=== PATIENT | female | born 1960 | race Caucasian/White ===

== ENCOUNTER 2017-03-27 18:34 | Inpatient (IN) | payer OTHER ==
[~2017-03-27] VITALS: Ht 162.6 cm; Wt 81.3 kg
[2017-03-27] MEDS ORDERED: ONDANSETRON 2MG/ML, 2ML IVPush ONE ×2 (19:00→22:00)
[2017-03-27] MEDS ORDERED: FAMOTIDINE 20 MG/2 ML IVP ONE (19:00)
[2017-03-27] MEDS ORDERED: SODIUM CHLORIDE FLUSH 10ML SYR IVF ONE (19:00)
[2017-03-27] MEDS ORDERED: SODIUM CHLORIDE 0.9% 1,000ML IVBOLUS ONE (19:00)
[2017-03-27 19:17] LABS: HEMATOCRIT 42.1 % (34.6-47.8); HEMOGLOBIN 14.1 g/dL (11.7-16.4); WHITE BLOOD COUNT 8.3 x10^3/uL (3.4-10)
[2017-03-27 19:26] LABS: ASPARTATE AMINO TRANSFERASE 20 U/L (15-37); BLOOD UREA NITROGEN 9 mg/dL (7-18)
[2017-03-27] MEDS ORDERED: FAMOTIDINE 20 MG/2 ML ONE (20:11)
[2017-03-27] MEDS ORDERED: ONDANSETRON 2MG/ML, 2ML ONE ×2 (20:11→21:46)
[2017-03-27] MEDS ORDERED: FEXO60TA24 PO (20:29)
[2017-03-27] MEDS ORDERED: HYDROmorphone 1 MG/ML, 1ML ONE ×2 (20:39→21:14)
[2017-03-27] MEDS: HYDROmorphone 1 MG/ML, 1ML IVPush PRN ×2 (20:47→21:22)
[2017-03-27] MEDS ORDERED: OMNIPAQUE 350 MG/ML, 100ML BOTTLE ONE (21:40)
[2017-03-28] MEDS ORDERED: ONDANSETRON ODT 4 MG PO PRN (00:30)
[2017-03-28] MEDS ORDERED: ONDANSETRON 2MG/ML, 2ML IVPush PRN ×2 (00:30→10:30)
[2017-03-28] MEDS ORDERED: D5%-0.9% NACL 1,000 ML IV SCH (01:00)
[2017-03-28 01:35] VITALS: BP 166/80
[2017-03-28 02:00] VITALS: BP 166/80
[2017-03-28] MEDS: D5%-0.9% NACL+KCL 20MEQ 1,000 ML IV SCH ×2 (02:04→09:00)
[2017-03-28 06:36] VITALS: BP 136/60
[2017-03-28 08:06] LABS: HCG UR OBC PASS
[2017-03-28] MEDS ORDERED: BACITRACIN 50,000 UNIT ONE (08:09)
[2017-03-28] MEDS ORDERED: MIDAZOLAM 1 MG/ML, 2ML ONE (08:48)
[2017-03-28] MEDS ORDERED: FENTANYL PF 100 MCG/2ML ONE ×3 (08:48→10:21)
[2017-03-28] MEDS ORDERED: BUPIVACAINE/PF 0.25% ONE ×2 (08:53→09:48)
[2017-03-28] MEDS: FAMOTIDINE 20 MG/2 ML IVPush SCH ×2 (09:00→21:30)
[2017-03-28] MEDS ORDERED: CEFOTETAN 2 GM ONE (09:01)
[2017-03-28] MEDS ORDERED: GLYCOPYRROLATE 0.2MG/1ML ONE (09:01)
[2017-03-28] MEDS ORDERED: PROPOFOL 10 MG/ML, 20ML ONE (09:01)
[2017-03-28] MEDS ORDERED: NEOSTIGMINE 1 MG/ML, 10ML ONE (09:01)
[2017-03-28] MEDS ORDERED: ROCURONIUM 10 MG/ML ONE (09:01)
[2017-03-28] MEDS ORDERED: DEXAMETHASONE 4 MG/ML, 1ML ONE (09:01)
[2017-03-28] MEDS ORDERED: SUCCINYLCHOLINE 20 MG/ML, 10ML ONE (09:01)
[2017-03-28] MEDS ORDERED: ONDANSETRON 2MG/ML, 2ML ONE (09:01)
[2017-03-28] MEDS ORDERED: KETAMINE 10 MG/ML, 20ML ONE (09:30)
[2017-03-28] MEDS ORDERED: HYDROmorphone 1 MG/ML, 1ML ONE (10:05)
[2017-03-28] MEDS ORDERED: hydrALAzine 20 MG/ML, 1ML IV PRN (10:30)
[2017-03-28] MEDS ORDERED: MIDAZOLAM 1 MG/ML, 2ML IV PRN ×2 (10:30)
[2017-03-28] MEDS ORDERED: HYDROmorphone 1 MG/ML, 1ML IV PRN (10:30)
[2017-03-28] MEDS ORDERED: ALBUTEROL/IPRATROPIUM 2.5MG/0.5MG, 3 ML NPPB PRN (10:30)
[2017-03-28] MEDS ORDERED: ACETAMINOPHEN 325 MG TABLET PO PRN (10:30)
[2017-03-28] MEDS ORDERED: OXYcodone 5 MG/5 ML ORAL.SOL UDC PO PRN (10:30)
[2017-03-28] MEDS ORDERED: MEPERIDINE/PF 25MG/0.5ML IVPush PRN (10:30)
[2017-03-28] MEDS ORDERED: PROMETHAZINE 25 MG/ML, 1ML IV PRN (10:30)
[2017-03-28] MEDS ORDERED: LABETALOL 5MG/ML, 20ML IV PRN (10:30)
[2017-03-28] MEDS: FENTANYL PF 100 MCG/2ML IV PRN ×2 (10:33→10:45)
[2017-03-28] MEDS: LABETALOL 5MG/ML, 20ML IVPush PRN (10:35)
[2017-03-28] MEDS ORDERED: hydrALAzine 20 MG/ML, 1ML ONE (10:43)
[2017-03-28] MEDS ORDERED: OXYcodone 5 MG/5 ML ORAL.SOL UDC ONE (11:04)
[2017-03-28] MEDS ORDERED: HYDROmorphone 2 MG/ML, 1ML ONE (11:09)
[2017-03-28] MEDS: HYDROmorphone 1 MG/ML, 1ML IVPush PRN ×3 (11:11→11:32)
[2017-03-28 12:14] VITALS: BP 165/76
[2017-03-28] MEDS ORDERED: SODIUM CHLORIDE 0.9%, 500ML IVBOLUS ONE (14:30)
[2017-03-28] MEDS ORDERED: LORazepam 1MG TABLET PO PRN (15:00)
[2017-03-28] MEDS ORDERED: LORazepam 2 MG/ML, 1ML IV PRN (15:00)
[2017-03-28] MEDS ORDERED: morphine SULFATE 10 MG/ML, 1ML IV PRN (15:00)
[2017-03-28] MEDS: POTASSIUM CHLORIDE 20 MEQ in D5%-0.45% NACL 1,000 ML IV SCH (16:45)
[2017-03-28] MEDS: ONDANSETRON 2MG/ML, 2ML IV PRN (17:55)
[2017-03-28] MEDS: HYDROmorphone 1 MG/ML, 1ML IV PRN (17:55)
[2017-03-28 20:55] VITALS: BP 146/71
[2017-03-28] MEDS: CEFOTETAN PMX 1GM/50ML 50 ML IVPB SCH (21:30)
[2017-03-29] VITALS (8 sets, daily range): BP systolic 140–183; BP diastolic 69–108
[2017-03-29] MEDS: POTASSIUM CHLORIDE 20 MEQ in D5%-0.45% NACL 1,000 ML IV SCH ×3 (01:16→22:11)
[2017-03-29 05:51] LABS: BLOOD UREA NITROGEN 7 mg/dL (7-18)
[2017-03-29 05:56] LABS: ASPARTATE AMINO TRANSFERASE 13 U/L (15-37)
[2017-03-29 06:02] LABS: HEMOGLOBIN 12.1 g/dL (11.7-16.4); WHITE BLOOD COUNT 14.4 x10^3/uL (3.4-10)
[2017-03-29] MEDS: ENOXAPARIN 40 MG/0.4 ML SQ SCH (06:34)
[2017-03-29] MEDS ORDERED: OXYcodone/APAP 5/325MG TABLET ONE (08:50)
[2017-03-29] MEDS: OXYcodone/APAP 5/325MG TABLET PO PRN ×2 (08:53→13:26)
[2017-03-29] MEDS: CEFOTETAN PMX 1GM/50ML 50 ML IVPB SCH (08:53)
[2017-03-29] MEDS: FAMOTIDINE 20 MG/2 ML IVPush SCH ×2 (08:53→20:59)
[2017-03-29] MEDS ORDERED: POTASSIUM CHLORIDE 40 MEQ in SODIUM CHLORIDE 0.9% 500 ML IV ONE (09:00)
[2017-03-29] MEDS: ONDANSETRON 2MG/ML, 2ML IV PRN (09:03)
[2017-03-29] MEDS: ASA/APAP/ CAFFEINE TABLET PO PRN (18:07)
[2017-03-29] MEDS: OXYcodone IR 5MG TABLET PO PRN (19:51)
[2017-03-29] MEDS: LABETALOL 5MG/ML, 20ML IVPush PRN (19:52)
[2017-03-30 01:30] VITALS: BP 151/76
[2017-03-30 04:45] LABS: HEMATOCRIT 35.5 % (34.6-47.8); HEMOGLOBIN 11.8 g/dL (11.7-16.4); WHITE BLOOD COUNT 9.4 x10^3/uL (3.4-10)
[2017-03-30] MEDS: OXYcodone IR 5MG TABLET PO PRN ×5 (04:48→23:56)
[2017-03-30] MEDS: ASA/APAP/ CAFFEINE TABLET PO PRN ×5 (04:48→23:56)
[2017-03-30 04:50] LABS: BLOOD UREA NITROGEN 5 mg/dL (7-18)
[2017-03-30] MEDS: POTASSIUM CHLORIDE 20 MEQ in D5%-0.45% NACL 1,000 ML IV SCH ×2 (05:56→15:10)
[2017-03-30] MEDS: ENOXAPARIN 40 MG/0.4 ML SQ SCH (05:57)
[2017-03-30 07:45] VITALS: BP 147/78
[2017-03-30] MEDS: FAMOTIDINE 20 MG/2 ML IVPush SCH ×2 (09:53→20:55)
[2017-03-30 14:35] VITALS: BP 153/78
[2017-03-30] MEDS: POTASSIUM CHLORIDE 20 MEQ in SODIUM CHLORIDE 0.45% 1,000 ML IV SCH (17:21)
[2017-03-30 20:15] VITALS: BP 160/67
[2017-03-31 03:00] VITALS: BP 160/80
[2017-03-31] MEDS: POTASSIUM CHLORIDE 20 MEQ in SODIUM CHLORIDE 0.45% 1,000 ML IV SCH ×3 (03:33→23:41)
[2017-03-31] MEDS: ASA/APAP/ CAFFEINE TABLET PO PRN (06:04)
[2017-03-31] MEDS: ENOXAPARIN 40 MG/0.4 ML SQ SCH (06:05)
[2017-03-31 06:09] LABS: BLOOD UREA NITROGEN 5 mg/dL (7-18)
[2017-03-31] MEDS: FAMOTIDINE 20 MG/2 ML IVPush SCH ×2 (07:38→21:22)
[2017-03-31] MEDS: ONDANSETRON 2MG/ML, 2ML IV PRN ×3 (07:58→21:22)
[2017-03-31 08:07] VITALS: BP 153/65
[2017-03-31] MEDS ORDERED: POTASSIUM CHLORIDE 20 MEQ TAB.ER.PRT PO ONE (08:30)
[2017-03-31] MEDS: LISINOPRIL 5 MG TABLET PO SCH (11:24)
[2017-03-31] MEDS ORDERED: SODIUM CHLORIDE NASAL SPRAY 45ML BOTTLE NAS PRN (11:30)
[2017-03-31] MEDS ORDERED: MECLIZINE 12.5 MG TABLET PO PRN (11:30)
[2017-03-31 13:27] VITALS: BP 155/75
[2017-03-31] MEDS: HYDROmorphone 1 MG/ML, 1ML IV PRN ×3 (17:12→23:52)
[2017-03-31 19:55] VITALS: BP 163/76
[2017-04-01] MEDS: ONDANSETRON 2MG/ML, 2ML IV PRN ×2 (01:30→16:46)
[2017-04-01] MEDS: HYDROmorphone 1 MG/ML, 1ML IV PRN ×3 (04:47→20:46)
[2017-04-01] MEDS: ENOXAPARIN 40 MG/0.4 ML SQ SCH (06:23)
[2017-04-01] MEDS ORDERED: BISACODYL 5 MG EC TABLET PO PRN (07:30)
[2017-04-01 08:17] LABS: BLOOD UREA NITROGEN 7 mg/dL (7-18)
[2017-04-01 08:34] VITALS: BP 166/72
[2017-04-01] MEDS ORDERED: LORATADINE 10 MG TABLET PO SCH (09:00)
[2017-04-01] MEDS: LISINOPRIL 5 MG TABLET PO SCH (09:00)
[2017-04-01] MEDS ORDERED: IBUPROFEN 200 MG TABLET PO PRN (10:00)
[2017-04-01] MEDS: FAMOTIDINE 20 MG/2 ML IVPush SCH ×2 (11:01→20:46)
[2017-04-01] MEDS: POTASSIUM CHLORIDE 20 MEQ in SODIUM CHLORIDE 0.45% 1,000 ML IV SCH (11:34)
[2017-04-01 14:13] VITALS: BP 153/72
[2017-04-01] MEDS: OXYcodone IR 5MG TABLET PO PRN (15:59)
[2017-04-01] MEDS: IBUPROFEN 200 MG TABLET HOMEMEDPO PRN (16:38)
[2017-04-01] MEDS ORDERED: OXYcodone/APAP 5/325MG TABLET PO PRN (18:30)
[2017-04-01 20:55] VITALS: BP 159/76
[2017-04-01] MEDS ORDERED: HYDROcodone/APAP 5/325 TABLET PO PRN (21:00)
[2017-04-02 01:25] VITALS: BP 154/66
[2017-04-02] MEDS: POTASSIUM CHLORIDE 20 MEQ in SODIUM CHLORIDE 0.45% 1,000 ML IV SCH (01:26)
[2017-04-02] MEDS: ENOXAPARIN 40 MG/0.4 ML SQ SCH (05:28)
[2017-04-02 05:42] LABS: HEMOGLOBIN 12.1 g/dL (11.7-16.4); WHITE BLOOD COUNT 8.7 x10^3/uL (3.4-10)
[2017-04-02 05:47] LABS: ASPARTATE AMINO TRANSFERASE 47 U/L (15-37); BLOOD UREA NITROGEN 8 mg/dL (7-18)
[2017-04-02] MEDS: FEXOFENADINE HYDROCHLORIDE 180 MG PO SCH (07:44)
[2017-04-02] MEDS: IBUPROFEN 200 MG TABLET HOMEMEDPO PRN ×4 (07:44→21:13)
[2017-04-02] MEDS: FAMOTIDINE 20 MG/2 ML IVPush SCH (07:44)
[2017-04-02] MEDS: LISINOPRIL 5 MG TABLET PO SCH (07:44)
[2017-04-02 08:21] VITALS: BP 159/75
[2017-04-02] MEDS: ACETAMINOPHEN 325 MG TABLET PO PRN ×2 (12:04→18:04)
[2017-04-02 14:20] VITALS: BP 171/78
[2017-04-02 16:24] VITALS: BP 180/78
[2017-04-02 20:40] VITALS: BP 165/80
[2017-04-02] MEDS: FAMOTIDINE 20 MG TABLET PO SCH (21:09)
[2017-04-03] MEDS: ACETAMINOPHEN 325 MG TABLET PO PRN ×3 (00:37→13:30)
[2017-04-03 02:20] VITALS: BP 168/73
[2017-04-03] MEDS: IBUPROFEN 200 MG TABLET HOMEMEDPO PRN ×2 (05:58→13:26)
[2017-04-03] MEDS: ENOXAPARIN 40 MG/0.4 ML SQ SCH (05:58)
[2017-04-03 08:30] VITALS: BP 159/80
[2017-04-03] MEDS: FAMOTIDINE 20 MG TABLET PO SCH (08:30)
[2017-04-03] MEDS: FEXOFENADINE HYDROCHLORIDE 180 MG PO SCH (08:30)
[2017-04-03] MEDS: LISINOPRIL 5 MG TABLET PO SCH (08:30)
[2017-04-03 14:47] VITALS: BP 155/83
== END 2017-04-03 15:47 | disposition home or self-care (01) | DRG 329 ==
LOC: ED 21:49 → EDIP 03-28 00:01 → 4NOR 03-28 01:30 → DCLOUNGE 04-03 15:28
PROVIDERS: ADMIT Hospitalist; ATTEND Internal Medicine
PROC: 0DB80ZZ Excision of Small Intestine, Open Approach (ICD-10-PCS; principal; 2017-03-28 09:00)
DX: D13.30 Benign neoplasm of unspecified part of small intestine (principal); E43 Unspecified severe protein-calorie malnutrition; K56.60 Unspecified intestinal obstruction; K76.89 Other specified diseases of liver; D72.829 Elevated white blood cell count, unspecified; E87.6 Hypokalemia; G40.909 Epilepsy, unspecified, not intractable, without status epilepticus; G43.909 Migraine, unspecified, not intractable, without status migrainosus; R73.9 Hyperglycemia, unspecified; I10 Essential (primary) hypertension; K21.9 Gastro-esophageal reflux disease without esophagitis; K57.10 Diverticulosis of small intestine without perforation or abscess without bleeding; R09.81 Nasal congestion; Z80.0 Family history of malignant neoplasm of digestive organs; Z82.49 Family history of ischemic heart disease and other diseases of the circulatory system; Z87.891 Personal history of nicotine dependence; Z98.891 History of uterine scar from previous surgery; Z68.30 Body mass index [BMI] 30.0-30.9, adult
CPT/HCPCS: 36415; 74177; 80048; 80053; 81025; 82040; 83690; 83735; 85025; 85610; 88309; 93005; 96361; 96374; 96375; 96376; J1100; J1170; J1650; J2250; J2405; J2704; J2710; J3010; J3480; J3490; Q9967; J0330; J0360; J2270; J7030; J7040; S0028; S0074